=== PATIENT | female | born 1945 | race Caucasian/White ===

== ENCOUNTER 2024-01-02 19:21 | Emergency (ER) | payer MEDICARE ==
[~2024-01-02] VITALS: Ht 170.2 cm; Wt 65.8 kg
[2024-01-02] MEDS: TDAP DIPH,PERTUSS,TET VAC/PF 0.5 ML DISP.SYRIN IM ONE (20:10)
[2024-01-02 20:35] LABS: BASOPHILS # (AUTO) 0.1 K/UL (0.0-0.2); BASOPHILS % (AUTO) 1.3 % (0.0-2.0); EOSINOPHILS % (AUTO) 0.3 % (0.0-7.0); HEMATOCRIT 29.9 % (31.2-41.9); HEMOGLOBIN 9.3 g/dL (10.9-14.3); LYMPHOCYTES # (AUTO) 1.3 K/uL (0.8-4.8); LYMPHOCYTES % (AUTO) 13.3 % (20.5-51.5); MEAN CORPUSCULAR HEMOGLOBIN 23.7 uug (24.7-32.8); MEAN CORPUSCULAR HGB CONC 31 g/dL (32.3-35.6); MEAN CORPUSCULAR VOLUME 76.6 fL (75.5-95.3); MONOCYTES # (AUTO) 0.7 K/uL (0.1-1.30); MONOCYTES % (AUTO) 7.1 % (0.0-11.0); NEUTROPHILS # (AUTO) 7.6 K/uL (1.8-8.9); PLATELET COUNT (AUTO) 443 K/uL (179-408); RED CELL DISTRIBUTION WIDTH 17.9 % (12.3-17.7); WHITE BLOOD COUNT (AUTO) 9.7 K/uL (3.8-11.8)
[2024-01-02 20:37] LABS: DIFFERENTIAL COMMENT 1
[2024-01-02 20:41] LABS: CALCIUM 9.1 mg/dL (8.5-10.1); CARBON DIOXIDE 22 mmol/L (21-32); CHLORIDE 104 mmol/L (98-107); CREATININE 1.6 mg/dL (0.6-1.3); GLUCOSE 95 mg/dL (74-106); POTASSIUM 4.1 mmol/L (3.5-5.1); SODIUM SERUM 138 mmol/L (136-145); UREA NITROGEN, BLOOD 23 mg/dL (7-18)
[2024-01-02] MEDS: IV NS 1000 ML 1,000 ML IV ONE (20:42)
[2024-01-02 20:46] LABS: AMMONIA < 10 umol/L (11-32)
[2024-01-02] MEDS ORDERED: TDAP DIPH,PERTUSS,TET VAC/PF 0.5 ML DISP.SYRIN IM ONE (20:49)
[2024-01-02 20:54] LABS: ALANINE AMINOTRANSFERASE 8 U/L (14-59); ALBUMIN 2.6 g/dL (3.4-5.0); ALKALINE PHOSPHATASE 80 U/L (50-136); ASPARTATE AMINOTRANSFERASE 9 U/L (15-37); BILIRUBIN,TOTAL 0.6 mg/dL (0.2-1.0); NT-PRO BNP 1153 pg/mL (0-125); TOTAL PROTEIN, SERUM 7.1 g/dL (6.4-8.2)
[2024-01-02 22:52] VITALS: BP 125/75; TEMP 98.6; O2SAT 99
== END 2024-01-02 23:03 | disposition home or self-care (01) ==
LOC: ER 19:23
DX: S06.0X0A Concussion without loss of consciousness, initial encounter (principal); Z98.890 Other specified postprocedural states; Z90.710 Acquired absence of both cervix and uterus; W18.39XA Other fall on same level, initial encounter; Y93.89 Activity, other specified; Y92.89 Other specified places as the place of occurrence of the external cause; Y99.8 Other external cause status
CPT/HCPCS: 99285; 96360; 70450; 71045; 80053; 82140; 83880; 85025; 84484; 36415; 90715; 93005; 90471; J7040; A4606; A4663

== ENCOUNTER 2024-04-10 13:06 | Inpatient (IN) | payer MEDICARE, OTHER ==
[~2024-04-10] VITALS: Ht 170.2 cm; Wt 64.4 kg
[2024-04-10 13:44] LABS: BASOPHILS % (AUTO) 0.6 % (0.0-2.0); EOSINOPHILS % (AUTO) 0.6 % (0.0-7.0); HEMATOCRIT 35.6 % (31.2-41.9); HEMOGLOBIN 11.6 g/dL (10.9-14.3); LYMPHOCYTES # (AUTO) 0.6 K/uL (0.8-4.8); LYMPHOCYTES % (AUTO) 7.5 % (20.5-51.5); MEAN CORPUSCULAR HEMOGLOBIN 26.1 uug (24.7-32.8); MEAN CORPUSCULAR HGB CONC 33 g/dL (32.3-35.6); MEAN CORPUSCULAR VOLUME 79.8 fL (75.5-95.3); MONOCYTES # (AUTO) 0.8 K/uL (0.1-1.30); NEUTROPHILS # (AUTO) 6.6 K/uL (1.8-8.9); NEUTROPHILS % (AUTO) 81.3 % (38.5-71.5); PLATELET COUNT (AUTO) 338 K/uL (179-408); RED BLOOD CELL COUNT(AUTO) 4.46 MIL/uL (3.63-4.92); RED CELL DISTRIBUTION WIDTH 17.5 % (12.3-17.7); WHITE BLOOD COUNT (AUTO) 8.1 K/uL (3.8-11.8)
[2024-04-10] MEDS ORDERED: VILA40TA PO (13:50)
[2024-04-10] MEDS ORDERED: PROP40TA7 PO (13:50)
[2024-04-10] MEDS ORDERED: QUET25TA36 PO (13:50)
[2024-04-10] MEDS ORDERED: PANT40TA49 PO (13:50)
[2024-04-10] MEDS ORDERED: BUPR-319 PO (13:50)
[2024-04-10] MEDS ORDERED: RALO60TA14 PO (13:50)
[2024-04-10] MEDS ORDERED: LITH150C PO (13:50)
[2024-04-10] MEDS: IV LACTATED RINGERS SOLUTION 1,000 ML BAG IV ONE (14:04)
[2024-04-10 14:05] LABS: ALANINE AMINOTRANSFERASE 25 U/L (14-59); ALBUMIN 3.3 g/dL (3.4-5.0); ALKALINE PHOSPHATASE 84 U/L (50-136); ASPARTATE AMINOTRANSFERASE 19 U/L (15-37); BILIRUBIN,DIRECT 0.1 mg/dL (0.0-0.2); BILIRUBIN,TOTAL 0.4 mg/dL (0.2-1.0); CALCIUM 8.9 mg/dL (8.5-10.1); CARBON DIOXIDE 28 mmol/L (21-32); CHLORIDE 102 mmol/L (98-107); CREATININE 1.5 mg/dL (0.6-1.3); GLUCOSE 115 mg/dL (74-106); NT-PRO BNP 1175 pg/mL (0-125); POTASSIUM 4.2 mmol/L (3.5-5.1); SODIUM SERUM 141 mmol/L (136-145); TOTAL PROTEIN, SERUM 7.3 g/dL (6.4-8.2); UREA NITROGEN, BLOOD 19 mg/dL (7-18)
[2024-04-10 14:12] LABS: *BILIRUBIN,URIN NEGATIVE (NEGATIVE); *BLOOD, URINE NEGATIVE (NEGATIVE); *CLARITY,URINE CLEAR (CLEAR); *COLOR,URINE YELLOW (YELLOW); *KETONES,URINE 1+ (NEGATIVE); *PROTEIN,URINE 1+ (NEGATIVE); *UROBILINOGEN,URINE 0.2 E.U./dl (NORMAL); LEUKOCYTE ESTERASE ,URINE NEGATIVE (NEGATIVE); NITRITE, URINE NEGATIVE (NEGATIVE); PH,URINE 5.5 (5.0-8.0); UGLUCOSE NEGATIVE (NEGATIVE)
[2024-04-10 14:36] LABS: DIFFERENTIAL COMMENT 1
[2024-04-10 18:11] LABS: BACTERIA,URINE FEW /HPF (NONE SEEN); MUCUS,URINE MODERATE /LPF (0-FEW); RBC,URINE NONE SEEN /HPF (0-3); SQUAMOUS EPITHELIAL CELL,UR FEW /HPF (NONE SEEN); WBC,URINE 0-3 /HPF (0-3)
[2024-04-10] MEDS: IV D5 1/2 NS 1000 ML 1,000 ML IV SCH (19:30)
[2024-04-10] MEDS ORDERED: ONDANSETRON 4 MG/2 ML VIAL IV PRN (19:30)
[2024-04-10] MEDS ORDERED: MAGNESIUM HYDROXIDE 30 ML LIQUID UDC PO PRN (19:30)
[2024-04-10] MEDS ORDERED: REMEDY ESSENTIAL ZINC PASTE 113 GM TP PRN (19:30)
[2024-04-11 06:43] LABS: BASOPHILS # (AUTO) 0.1 K/UL (0.0-0.2); BASOPHILS % (AUTO) 0.8 % (0.0-2.0); EOSINOPHILS % (AUTO) 0.1 % (0.0-7.0); HEMATOCRIT 31.3 % (31.2-41.9); HEMOGLOBIN 10.5 g/dL (10.9-14.3); LYMPHOCYTES # (AUTO) 0.8 K/uL (0.8-4.8); MEAN CORPUSCULAR HEMOGLOBIN 26.5 uug (24.7-32.8); MEAN CORPUSCULAR HGB CONC 34 g/dL (32.3-35.6); MEAN CORPUSCULAR VOLUME 78.5 fL (75.5-95.3); MONOCYTES # (AUTO) 1.2 K/uL (0.1-1.30); MONOCYTES % (AUTO) 14.3 % (0.0-11.0); NEUTROPHILS # (AUTO) 6.5 K/uL (1.8-8.9); NEUTROPHILS % (AUTO) 75.8 % (38.5-71.5); PLATELET COUNT (AUTO) 278 K/uL (179-408); RED BLOOD CELL COUNT(AUTO) 3.99 MIL/uL (3.63-4.92); RED CELL DISTRIBUTION WIDTH 17.5 % (12.3-17.7); WHITE BLOOD COUNT (AUTO) 8.6 K/uL (3.8-11.8)
[2024-04-11 06:44] LABS: DIFFERENTIAL COMMENT 1
[2024-04-11 06:54] LABS: CALCIUM 8.4 mg/dL (8.5-10.1); CARBON DIOXIDE 25 mmol/L (21-32); CHLORIDE 103 mmol/L (98-107); CREATININE 1.4 mg/dL (0.6-1.3); GLUCOSE 75 mg/dL (74-106); PHOSPHOROUS 3.1 mg/dL (2.5-4.9); POTASSIUM 3.6 mmol/L (3.5-5.1); SODIUM SERUM 138 mmol/L (136-145); UREA NITROGEN, BLOOD 21 mg/dL (7-18)
[2024-04-11] MEDS: IV NORMAL SALINE 1000 ML BAG IV ONE (14:45)
[2024-04-11] MEDS ORDERED: IV NORMAL SALINE 250 ML IV ONE (14:59)
[2024-04-11] MEDS ORDERED: SWABABLE VALVE TRANSFER SET EA MC ONE (14:59)
[2024-04-11] MEDS ORDERED: IOHEXOL 300MG/ML 100 ML INFUS..BTL ONE (14:59)
[2024-04-11 18:26] VITALS: BP 147/69; TEMP 97.4; O2SAT 97
[2024-04-11 20:23] VITALS: BP 140/58; TEMP 98.6; O2SAT 97
[2024-04-11] MEDS: ATORVASTATIN 40 MG TABLET PO SCH (21:00)
[2024-04-11 23:25] VITALS: BP 144/67; TEMP 99.4; O2SAT 94
[2024-04-12 04:46] VITALS: BP 130/60; TEMP 98.4; O2SAT 96
[2024-04-12 07:43] VITALS: BP 125/65; TEMP 98.2; O2SAT 98
[2024-04-12 07:47] LABS: BASOPHILS % (AUTO) 0.6 % (0.0-2.0); EOSINOPHILS # (AUTO) 0.1 K/uL (0.0-0.7); EOSINOPHILS % (AUTO) 1.6 % (0.0-7.0); HEMATOCRIT 32.1 % (31.2-41.9); HEMOGLOBIN 10.4 g/dL (10.9-14.3); LYMPHOCYTES # (AUTO) 0.9 K/uL (0.8-4.8); LYMPHOCYTES % (AUTO) 13.4 % (20.5-51.5); MEAN CORPUSCULAR HEMOGLOBIN 25.9 uug (24.7-32.8); MEAN CORPUSCULAR HGB CONC 33 g/dL (32.3-35.6); MEAN CORPUSCULAR VOLUME 79.8 fL (75.5-95.3); MONOCYTES # (AUTO) 0.8 K/uL (0.1-1.30); MONOCYTES % (AUTO) 12.1 % (0.0-11.0); NEUTROPHILS # (AUTO) 4.7 K/uL (1.8-8.9); NEUTROPHILS % (AUTO) 72.3 % (38.5-71.5); PLATELET COUNT (AUTO) 155 K/uL (179-408); RED BLOOD CELL COUNT(AUTO) 4.02 MIL/uL (3.63-4.92); RED CELL DISTRIBUTION WIDTH 17.5 % (12.3-17.7); WHITE BLOOD COUNT (AUTO) 6.4 K/uL (3.8-11.8)
[2024-04-12 07:50] LABS: DIFFERENTIAL COMMENT 1
[2024-04-12 07:55] LABS: CARBON DIOXIDE 22 mmol/L (21-32); CHLORIDE 103 mmol/L (98-107); CHOLESTEROL 182 mg/dL (<200); GLUCOSE 89 mg/dL (74-106); HDL CHOLESTEROL 53 mg/dL (40-60); MAGNESIUM 2.1 mg/dL (1.8-2.4); PHOSPHOROUS 3.2 mg/dL (2.5-4.9); POTASSIUM 3.9 mmol/L (3.5-5.1); SODIUM SERUM 134 mmol/L (136-145); TRIGLYCERIDES 122 MG/DL (30-150); UREA NITROGEN, BLOOD 13 mg/dL (7-18)
[2024-04-12] MEDS: ASPIRIN 81 MG TAB.CHEW PO SCH (08:46)
[2024-04-12 09:45] LABS: ANISOCYTOSIS 1+; LYMPHOCYTES % (MANUAL) 12 % (20-40); MONOCYTES % (MANUAL) 13 % (2-10); NEUTROPHILS % (MANUAL) 75 % (42-75); PLATELET ESTIMATE INCREASED
[2024-04-12] MEDS: IV NS 1000 ML 1,000 ML IV SCH (10:25)
[2024-04-12 11:50] VITALS: BP 126/51; TEMP 98; O2SAT 97
[2024-04-12] MEDS: CLONAZEPAM 0.5 MG TABLET PO PRN (12:35)
[2024-04-12] MEDS: buPROPion XL 150 MG TAB.SR.24H PO SCH (12:36)
[2024-04-12 15:42] VITALS: BP 140/65; TEMP 97.6; O2SAT 99
[2024-04-12] MEDS ORDERED: CEFTRIAXONE 1 G in IV DEXTROSE 5% 50 ML IV SCH (16:00)
[2024-04-12] MEDS: CEFTRIAXONE 1 G in IV DEXTROSE 5% 50 ML IV SCH (16:30)
[2024-04-12 16:57] LABS: *CREATININE,URINE 80.7 mg/dL (30-125); *URINE TOTAL PROTEIN RANDOM 80.4 mg/dL (<150/24HR)
[2024-04-12 19:45] VITALS: BP 124/65; TEMP 98.1; O2SAT 95
[2024-04-12] MEDS: QUETIAPINE FUMARATE 25 MG TABLET PO SCH (20:34)
[2024-04-12] MEDS: ACETAMINOPHEN 325 MG TABLET PO PRN (21:49)
[2024-04-13 00:08] VITALS: BP 123/75; TEMP 97.6; O2SAT 94
[2024-04-13 04:30] VITALS: BP 144/46; TEMP 97.4; O2SAT 93
[2024-04-13 07:50] VITALS: BP 133/61; TEMP 97.7; O2SAT 98
[2024-04-13 07:59] LABS: BASOPHILS % (AUTO) 0.5 % (0.0-2.0); EOSINOPHILS # (AUTO) 0.1 K/uL (0.0-0.7); EOSINOPHILS % (AUTO) 3.7 % (0.0-7.0); HEMOGLOBIN 9.9 g/dL (10.9-14.3); LYMPHOCYTES # (AUTO) 0.9 K/uL (0.8-4.8); LYMPHOCYTES % (AUTO) 30.1 % (20.5-51.5); MEAN CORPUSCULAR HEMOGLOBIN 26.6 uug (24.7-32.8); MEAN CORPUSCULAR HGB CONC 34 g/dL (32.3-35.6); MEAN CORPUSCULAR VOLUME 78.4 fL (75.5-95.3); MONOCYTES # (AUTO) 0.4 K/uL (0.1-1.30); MONOCYTES % (AUTO) 12.3 % (0.0-11.0); NEUTROPHILS # (AUTO) 1.7 K/uL (1.8-8.9); NEUTROPHILS % (AUTO) 53.4 % (38.5-71.5); PLATELET COUNT (AUTO) 269 K/uL (179-408); RED BLOOD CELL COUNT(AUTO) 3.71 MIL/uL (3.63-4.92); RED CELL DISTRIBUTION WIDTH 17.3 % (12.3-17.7); WHITE BLOOD COUNT (AUTO) 3.1 K/uL (3.8-11.8)
[2024-04-13 08:03] LABS: CALCIUM 8.2 mg/dL (8.5-10.1); CARBON DIOXIDE 27 mmol/L (21-32); CHLORIDE 109 mmol/L (98-107); CREATININE 1.2 mg/dL (0.6-1.3); GLUCOSE 87 mg/dL (74-106); MAGNESIUM 2.1 mg/dL (1.8-2.4); PHOSPHOROUS 3.1 mg/dL (2.5-4.9); SODIUM SERUM 146 mmol/L (136-145); UREA NITROGEN, BLOOD 11 mg/dL (7-18)
[2024-04-13 08:07] LABS: DIFFERENTIAL COMMENT 1
[2024-04-13] MEDS: LITHIUM CARBONATE 150 MG CAPSULE PO SCH (08:42)
[2024-04-13] MEDS: POTASSIUM CHLORIDE 10 MEQ TAB.PRT.SR PO SCH (09:26)
[2024-04-13 11:46] VITALS: BP 128/59; TEMP 97.8; O2SAT 97
[2024-04-13 15:48] VITALS: BP 102/57; TEMP 97.6; O2SAT 98
[2024-04-13 19:40] VITALS: BP 136/69; TEMP 97.6; O2SAT 95
[2024-04-14 00:21] VITALS: BP 137/79; TEMP 97.6; O2SAT 100
[2024-04-14 04:07] VITALS: BP 146/70; TEMP 98.2; O2SAT 98
[2024-04-14 07:05] LABS: CALCIUM 8.1 mg/dL (8.5-10.1); CARBON DIOXIDE 24 mmol/L (21-32); CHLORIDE 110 mmol/L (98-107); CREATININE 1.1 mg/dL (0.6-1.3); GLUCOSE 85 mg/dL (74-106); POTASSIUM 3.4 mmol/L (3.5-5.1); SODIUM SERUM 145 mmol/L (136-145); UREA NITROGEN, BLOOD 6 mg/dL (7-18)
[2024-04-14] MEDS: IV 1/2NS 1000 ML 1,000 ML IV PRN (07:23)
[2024-04-14 07:25] VITALS: BP 147/81; TEMP 97.6; O2SAT 95
[2024-04-14] MEDS: POTASSIUM CHLORIDE 20 MEQ TAB.PRT.SR PO ONE (09:07)
[2024-04-14 12:00] VITALS: BP 141/69; TEMP 98.2; O2SAT 98
[2024-04-14 15:58] VITALS: BP 137/72; TEMP 97.6; O2SAT 95
[2024-04-14 19:00] VITALS: BP 124/71; TEMP 97.9; O2SAT 96
[2024-04-15 06:00] VITALS: BP 136/69; TEMP 97.9; O2SAT 95
[2024-04-15 07:48] LABS: BASOPHILS % (AUTO) 0.7 % (0.0-2.0); EOSINOPHILS # (AUTO) 0.2 K/uL (0.0-0.7); EOSINOPHILS % (AUTO) 4.5 % (0.0-7.0); HEMATOCRIT 30.4 % (31.2-41.9); HEMOGLOBIN 10.3 g/dL (10.9-14.3); LYMPHOCYTES # (AUTO) 1.1 K/uL (0.8-4.8); LYMPHOCYTES % (AUTO) 28.1 % (20.5-51.5); MEAN CORPUSCULAR HEMOGLOBIN 26.6 uug (24.7-32.8); MEAN CORPUSCULAR HGB CONC 34 g/dL (32.3-35.6); MEAN CORPUSCULAR VOLUME 78.6 fL (75.5-95.3); MONOCYTES # (AUTO) 0.5 K/uL (0.1-1.30); MONOCYTES % (AUTO) 13.9 % (0.0-11.0); NEUTROPHILS # (AUTO) 2.1 K/uL (1.8-8.9); NEUTROPHILS % (AUTO) 52.8 % (38.5-71.5); PLATELET COUNT (AUTO) 298 K/uL (179-408); RED BLOOD CELL COUNT(AUTO) 3.87 MIL/uL (3.63-4.92); RED CELL DISTRIBUTION WIDTH 17.4 % (12.3-17.7)
[2024-04-15 07:58] LABS: DIFFERENTIAL COMMENT 1
[2024-04-15 08:11] LABS: CALCIUM 8.7 mg/dL (8.5-10.1); CHLORIDE 109 mmol/L (98-107); CREATININE 1.3 mg/dL (0.6-1.3); GLUCOSE 86 mg/dL (74-106); MAGNESIUM 2.2 mg/dL (1.8-2.4); PHOSPHOROUS 2.8 mg/dL (2.5-4.9); POTASSIUM 3.7 mmol/L (3.5-5.1); SODIUM SERUM 144 mmol/L (136-145); UREA NITROGEN, BLOOD 6 mg/dL (7-18)
[2024-04-15 08:27] LABS: CARBON DIOXIDE 25 mmol/L (21-32)
[2024-04-15 11:34] VITALS: BP 136/69; TEMP 97.9; O2SAT 98
[2024-04-15 15:43] VITALS: BP 139/67; TEMP 98.3; O2SAT 95
== END 2024-04-15 16:40 | DRG 682 ==
LOC: ER 13:06 → MEDSURG3 04-11 17:11 → TELE3 04-11 18:16 → MEDSURG3 04-14 14:10
PROC: 05HA33Z Insertion of Infusion Device into Left Brachial Vein, Percutaneous Approach (ICD-10-PCS; principal; 2024-04-10)
DX: N17.9 Acute kidney failure, unspecified (principal); G93.41 Metabolic encephalopathy; E44.1 Mild protein-calorie malnutrition; E87.1 Hypo-osmolality and hyponatremia; R44.0 Auditory hallucinations; F31.9 Bipolar disorder, unspecified; E88.09 Other disorders of plasma-protein metabolism, not elsewhere classified; E87.6 Hypokalemia; I10 Essential (primary) hypertension; K21.9 Gastro-esophageal reflux disease without esophagitis; M89.8X9 Other specified disorders of bone, unspecified site; Z87.440 Personal history of urinary (tract) infections; Z90.710 Acquired absence of both cervix and uterus; Z88.0 Allergy status to penicillin; Z96.653 Presence of artificial knee joint, bilateral; Z86.16 Personal history of COVID-19; Z79.899 Other long term (current) drug therapy; Z78.1 Physical restraint status; R44.1 Visual hallucinations
CPT/HCPCS: 36415; 70030-TC; 70450; 70496; 71045; 76770; 83605; 83735; 84100; 84300; 84484; 85025; 85730; 87040; 93307; A4663; G0378; J0696; J7040; J7120; Q9967

== ENCOUNTER 2024-04-15 17:46 | Inpatient (IN) | payer MEDICARE, OTHER ==
[~2024-04-15] VITALS: Ht 170.2 cm; Wt 61.7 kg
[~2024-04-15 17:46] MED LIST: BUPR-319 PO; LITH150C PO; PANT40TA49 PO; PROP40TA7 PO; QUET25TA36 PO; RALO60TA14 PO; VILA40TA PO
[2024-04-15] MEDS ORDERED: MAGNESIUM HYDROXIDE 30 ML LIQUID UDC PO PRN (18:30)
[2024-04-15] MEDS ORDERED: MAG HYDROX/AL HYDROX/SIMETH 30 ML LIQUID UDC PO PRN (18:30)
[2024-04-15] MEDS: BLOOD SUGAR DIAGNOSTIC 1 EACH STRIP VI ONE ×2 (19:30→19:45)
[2024-04-15 20:23] VITALS: BP 135/77; TEMP 98.2; O2SAT 98
[2024-04-15] MEDS: QUETIAPINE FUMARATE 25 MG TABLET PO SCH (21:17)
[2024-04-16 07:40] VITALS: BP 135/68; TEMP 97.8; O2SAT 98
[2024-04-16] MEDS: buPROPion XL 150 MG TAB.SR.24H PO SCH (09:17)
[2024-04-16] MEDS: LITHIUM CARBONATE 150 MG CAPSULE PO SCH (09:17)
[2024-04-16 10:24] LABS: CREATININE 1.2 mg/dL (0.6-1.3)
[2024-04-16 16:00] VITALS: BP 112/73; TEMP 97.6; O2SAT 97
[2024-04-16 19:57] VITALS: BP 124/66; TEMP 97.8; O2SAT 18
[2024-04-17 08:06] VITALS: BP 116/62; TEMP 98.4; O2SAT 18
[2024-04-17] MEDS: ENSURE ENLIVE (VAN) 240 ML LIQUID PO SCH (09:18)
[2024-04-17 16:06] VITALS: BP 138/79; TEMP 98.1; O2SAT 98
[2024-04-17 20:00] VITALS: BP_SYST 120; BP_SYST 154; BP_DIAS 76; TEMP 97.8; TEMP 98.1; O2SAT 97; O2SAT 99
[2024-04-18 08:58] VITALS: BP 112/71; TEMP 97.6; O2SAT 97
[2024-04-18] MEDS: GUAIFENESIN/DEXTROMETHORPHAN 5 ML UDC PO PRN (13:25)
[2024-04-18 16:08] VITALS: BP 119/59; TEMP 98.3; O2SAT 100
[2024-04-18 20:07] VITALS: BP 133/73; TEMP 97.9; O2SAT 98
[2024-04-18] MEDS: QUETIAPINE FUMARATE 25 MG TABLET PO SCH (21:08)
[2024-04-18] MEDS: CLONAZEPAM 0.5 MG TABLET PO PRN (21:08)
[2024-04-19 08:10] VITALS: BP 139/68; TEMP 98.1; O2SAT 98
[2024-04-19 08:23] LABS: ALANINE AMINOTRANSFERASE 24 U/L (14-59); ALBUMIN 2.6 g/dL (3.4-5.0); ALKALINE PHOSPHATASE 75 U/L (50-136); ASPARTATE AMINOTRANSFERASE 12 U/L (15-37); BILIRUBIN,TOTAL 0.3 mg/dL (0.2-1.0); CALCIUM 8.4 mg/dL (8.5-10.1); CARBON DIOXIDE 27 mmol/L (21-32); CHLORIDE 106 mmol/L (98-107); CREATININE 1.2 mg/dL (0.6-1.3); GLUCOSE 92 mg/dL (74-106); POTASSIUM 3.8 mmol/L (3.5-5.1); SODIUM SERUM 142 mmol/L (136-145); TOTAL PROTEIN, SERUM 6.5 g/dL (6.4-8.2); UREA NITROGEN, BLOOD 20 mg/dL (7-18)
[2024-04-19 08:31] LABS: THYROID STIMULATING HORMONE 4.566 mIU/mL (0.358-3.740)
[2024-04-19] MEDS: PROPRANOLOL HCL 40 MG TABLET PO SCH (08:49)
[2024-04-19] MEDS: RALOXIFENE HCL 60 MG TABLET PO SCH (08:50)
[2024-04-19 16:06] VITALS: BP 122/61; TEMP 97.6; O2SAT 98
[2024-04-19 19:47] VITALS: BP 118/61; TEMP 97.9; O2SAT 96
[2024-04-20 08:10] VITALS: BP 108/56; TEMP 98.6; O2SAT 98
[2024-04-20 16:12] VITALS: BP 119/54; TEMP 97.6; O2SAT 100
[2024-04-20 20:00] VITALS: BP 119/59; TEMP 97.8; O2SAT 98
[2024-04-21 08:14] VITALS: BP 116/49; TEMP 98.1; O2SAT 96
[2024-04-21 21:39] VITALS: BP 151/52; TEMP 98.1; O2SAT 98
[2024-04-22] MEDS: TEMAZEPAM 7.5 MG CAPSULE PO PRN (01:57)
[2024-04-22 08:30] VITALS: BP 119/64; TEMP 98; O2SAT 97
[2024-04-22] MEDS: ACETAMINOPHEN 325 MG TABLET PO PRN (15:26)
[2024-04-22 17:34] LABS: BASOPHILS % (AUTO) 0.2 % (0.0-2.0); HEMATOCRIT 31.5 % (31.2-41.9); HEMOGLOBIN 10.2 g/dL (10.9-14.3); LYMPHOCYTES % (AUTO) 4.6 % (20.5-51.5); MEAN CORPUSCULAR HEMOGLOBIN 25.2 uug (24.7-32.8); MEAN CORPUSCULAR HGB CONC 32 g/dL (32.3-35.6); MONOCYTES # (AUTO) 2.2 K/uL (0.1-1.30); MONOCYTES % (AUTO) 10.1 % (0.0-11.0); NEUTROPHILS # (AUTO) 18.7 K/uL (1.8-8.9); NEUTROPHILS % (AUTO) 85.1 % (38.5-71.5); PLATELET COUNT (AUTO) 519 K/uL (179-408); RED BLOOD CELL COUNT(AUTO) 4.04 MIL/uL (3.63-4.92); RED CELL DISTRIBUTION WIDTH 16.9 % (12.3-17.7); WHITE BLOOD COUNT (AUTO) 21.9 K/uL (3.8-11.8)
[2024-04-22 17:38] LABS: DIFFERENTIAL COMMENT 1
[2024-04-22 17:41] LABS: CALCIUM 8.5 mg/dL (8.5-10.1); CARBON DIOXIDE 25 mmol/L (21-32); CHLORIDE 101 mmol/L (98-107); CREATININE 1.3 mg/dL (0.6-1.3); GLUCOSE 112 mg/dL (74-106); POTASSIUM 4.6 mmol/L (3.5-5.1); SODIUM SERUM 134 mmol/L (136-145); UREA NITROGEN, BLOOD 34 mg/dL (7-18)
[2024-04-22 18:29] VITALS: BP 147/60; TEMP 99.8; O2SAT 96
[2024-04-22 20:16] VITALS: BP 126/64; TEMP 99.1; O2SAT 95
[2024-04-22 21:00] VITALS: TEMP 100.1; O2SAT 96
[2024-04-22] MEDS: IBUPROFEN 600 MG TABLET PO PRN (22:09)
[2024-04-22 23:15] VITALS: TEMP 99.1; O2SAT 96
[2024-04-23 00:30] VITALS: TEMP 98.4
[2024-04-23 07:48] VITALS: BP 103/68; TEMP 98.8; O2SAT 92
[2024-04-23 15:07] VITALS: BP 106/43; TEMP 100.4; O2SAT 95
[2024-04-23 16:25] VITALS: TEMP 99.3
[2024-04-23 20:00] VITALS: BP 109/48; TEMP 97.1; O2SAT 97
[2024-04-24 08:10] VITALS: BP 86/33; TEMP 98.2; O2SAT 98
[2024-04-24 09:39] LABS: BASOPHILS % (AUTO) 0.2 % (0.0-2.0); HEMATOCRIT 32.4 % (31.2-41.9); HEMOGLOBIN 10.1 g/dL (10.9-14.3); LYMPHOCYTES # (AUTO) 1.3 K/uL (0.8-4.8); LYMPHOCYTES % (AUTO) 5.4 % (20.5-51.5); MEAN CORPUSCULAR HEMOGLOBIN 24.4 uug (24.7-32.8); MEAN CORPUSCULAR HGB CONC 31 g/dL (32.3-35.6); MEAN CORPUSCULAR VOLUME 78.6 fL (75.5-95.3); MONOCYTES # (AUTO) 2.1 K/uL (0.1-1.30); MONOCYTES % (AUTO) 8.6 % (0.0-11.0); NEUTROPHILS # (AUTO) 21.1 K/uL (1.8-8.9); NEUTROPHILS % (AUTO) 85.8 % (38.5-71.5); PLATELET COUNT (AUTO) 426 K/uL (179-408); RED BLOOD CELL COUNT(AUTO) 4.12 MIL/uL (3.63-4.92); WHITE BLOOD COUNT (AUTO) 24.5 K/uL (3.8-11.8)
[2024-04-24 10:13] LABS: DIFFERENTIAL COMMENT 1
[2024-04-24 10:53] LABS: CALCIUM 8.8 mg/dL (8.5-10.1); CARBON DIOXIDE 23 mmol/L (21-32); CHLORIDE 101 mmol/L (98-107); CREATININE 2.5 mg/dL (0.6-1.3); GLUCOSE 101 mg/dL (74-106); POTASSIUM 4.6 mmol/L (3.5-5.1); SODIUM SERUM 136 mmol/L (136-145); UREA NITROGEN, BLOOD 56 mg/dL (7-18)
[2024-04-24] MEDS ORDERED: IV NORMAL SALINE 100 ML BAG IV ONE (15:45)
[2024-04-24 16:10] VITALS: BP 137/56; TEMP 98; O2SAT 100
[2024-04-24] MEDS: IV NS 1000 ML 1,000 ML IV SCH (19:11)
[2024-04-24 20:00] VITALS: BP 98/52; TEMP 97.3; O2SAT 98
[2024-04-25 08:06] VITALS: BP 122/37; TEMP 98.6; O2SAT 96
[2024-04-25 09:56] LABS: CALCIUM 8.5 mg/dL (8.5-10.1); CARBON DIOXIDE 24 mmol/L (21-32); CHLORIDE 106 mmol/L (98-107); CREATININE 1.9 mg/dL (0.6-1.3); GLUCOSE 105 mg/dL (74-106); POTASSIUM 3.9 mmol/L (3.5-5.1); SODIUM SERUM 138 mmol/L (136-145); UREA NITROGEN, BLOOD 48 mg/dL (7-18)
[2024-04-25 16:08] VITALS: TEMP 98.4; O2SAT 100
[2024-04-25 22:09] VITALS: BP 118/52; TEMP 98.5; O2SAT 98
[2024-04-26 07:02] VITALS: BP 140/60; TEMP 97.6; O2SAT 93
[2024-04-26 08:27] VITALS: BP 149/77; TEMP 98; O2SAT 99
[2024-04-26 08:42] LABS: *BILIRUBIN,URIN NEGATIVE (NEGATIVE); *BLOOD, URINE 1+ (NEGATIVE); *CLARITY,URINE CLEAR (CLEAR); *COLOR,URINE YELLOW (YELLOW); *KETONES,URINE NEGATIVE (NEGATIVE); *PROTEIN,URINE 1+ (NEGATIVE); *UROBILINOGEN,URINE 0.2 E.U./dl (NORMAL); LEUKOCYTE ESTERASE ,URINE 2+ (NEGATIVE); NITRITE, URINE NEGATIVE (NEGATIVE); UGLUCOSE NEGATIVE (NEGATIVE)
[2024-04-26 08:45] LABS: *CREATININE,URINE 29.7 mg/dL (30-125); *URINE TOTAL PROTEIN RANDOM 59.6 mg/dL (<150/24HR)
[2024-04-26 08:46] LABS: BACTERIA,URINE FEW /HPF (NONE SEEN); SQUAMOUS EPITHELIAL CELL,UR FEW /HPF (NONE SEEN); WBC,URINE 20-50 /HPF (0-3)
[2024-04-26 09:19] LABS: BASOPHILS # (AUTO) 0.1 K/UL (0.0-0.2); BASOPHILS % (AUTO) 0.5 % (0.0-2.0); EOSINOPHILS # (AUTO) 0.1 K/uL (0.0-0.7); EOSINOPHILS % (AUTO) 1.1 % (0.0-7.0); HEMATOCRIT 27.1 % (31.2-41.9); HEMOGLOBIN 8.8 g/dL (10.9-14.3); LYMPHOCYTES % (AUTO) 7.9 % (20.5-51.5); MEAN CORPUSCULAR HEMOGLOBIN 25.6 uug (24.7-32.8); MEAN CORPUSCULAR HGB CONC 32 g/dL (32.3-35.6); MEAN CORPUSCULAR VOLUME 79.1 fL (75.5-95.3); MONOCYTES # (AUTO) 1.4 K/uL (0.1-1.30); MONOCYTES % (AUTO) 11.6 % (0.0-11.0); NEUTROPHILS # (AUTO) 9.6 K/uL (1.8-8.9); NEUTROPHILS % (AUTO) 78.9 % (38.5-71.5); PLATELET COUNT (AUTO) 424 K/uL (179-408); RED BLOOD CELL COUNT(AUTO) 3.43 MIL/uL (3.63-4.92); RED CELL DISTRIBUTION WIDTH 17.5 % (12.3-17.7); WHITE BLOOD COUNT (AUTO) 12.2 K/uL (3.8-11.8)
[2024-04-26 09:21] LABS: DIFFERENTIAL COMMENT 1
[2024-04-26 09:37] LABS: CALCIUM 8.7 mg/dL (8.5-10.1); CARBON DIOXIDE 24 mmol/L (21-32); CHLORIDE 112 mmol/L (98-107); CREATININE 1.5 mg/dL (0.6-1.3); GLUCOSE 89 mg/dL (74-106); POTASSIUM 4.5 mmol/L (3.5-5.1); SODIUM SERUM 145 mmol/L (136-145); UREA NITROGEN, BLOOD 31 mg/dL (7-18)
[2024-04-26] MEDS: levoFLOXacin 250 MG TABLET PO SCH (12:01)
[2024-04-26 12:25] LABS: URINE AMORPHOUS URATE MANY /HPF; YEAST,URINE MODERATE /HPF (NONE SEEN)
[2024-04-26 14:58] VITALS: BP 140/68; TEMP 98; O2SAT 100
[2024-04-26 15:05] VITALS: BP 138/69; TEMP 98; O2SAT 100
[2024-04-26 20:00] VITALS: BP 98/66; TEMP 97.7; O2SAT 100
[2024-04-26] MEDS ORDERED: FLUCONAZOLE 100 MG TABLET ONE (22:16)
[2024-04-26] MEDS: FLUCONAZOLE 100 MG TABLET PO SCH (22:26)
[2024-04-27 08:10] VITALS: BP 134/58; TEMP 97.7; O2SAT 94
[2024-04-27 08:58] LABS: CALCIUM 8.7 mg/dL (8.5-10.1); CARBON DIOXIDE 24 mmol/L (21-32); CHLORIDE 110 mmol/L (98-107); CREATININE 1.3 mg/dL (0.6-1.3); GLUCOSE 100 mg/dL (74-106); POTASSIUM 4.3 mmol/L (3.5-5.1); SODIUM SERUM 145 mmol/L (136-145); UREA NITROGEN, BLOOD 25 mg/dL (7-18)
[2024-04-27] MEDS: LITHIUM CARBONATE 150 MG CAPSULE PO SCH (09:17)
[2024-04-27 16:10] VITALS: BP 128/51; TEMP 97.5; O2SAT 100
[2024-04-27 20:00] VITALS: BP 127/69; TEMP 98; O2SAT 99
[2024-04-27] MEDS: QUETIAPINE FUMARATE 25 MG TABLET PO SCH (20:11)
[2024-04-28 08:07] LABS: BASOPHILS # (AUTO) 0.1 K/UL (0.0-0.2); BASOPHILS % (AUTO) 0.6 % (0.0-2.0); EOSINOPHILS # (AUTO) 0.3 K/uL (0.0-0.7); EOSINOPHILS % (AUTO) 2.8 % (0.0-7.0); HEMATOCRIT 30.1 % (31.2-41.9); HEMOGLOBIN 9.6 g/dL (10.9-14.3); LYMPHOCYTES # (AUTO) 0.9 K/uL (0.8-4.8); LYMPHOCYTES % (AUTO) 7.8 % (20.5-51.5); MEAN CORPUSCULAR HEMOGLOBIN 25.3 uug (24.7-32.8); MEAN CORPUSCULAR HGB CONC 32 g/dL (32.3-35.6); MEAN CORPUSCULAR VOLUME 79.7 fL (75.5-95.3); MONOCYTES # (AUTO) 1.2 K/uL (0.1-1.30); MONOCYTES % (AUTO) 10.3 % (0.0-11.0); NEUTROPHILS % (AUTO) 78.5 % (38.5-71.5); PLATELET COUNT (AUTO) 506 K/uL (179-408); RED BLOOD CELL COUNT(AUTO) 3.77 MIL/uL (3.63-4.92); RED CELL DISTRIBUTION WIDTH 17.1 % (12.3-17.7); WHITE BLOOD COUNT (AUTO) 11.5 K/uL (3.8-11.8)
[2024-04-28 08:12] VITALS: BP 126/71; TEMP 98.5; O2SAT 96
[2024-04-28 08:13] LABS: DIFFERENTIAL COMMENT 1
[2024-04-28 16:35] VITALS: BP 130/71; TEMP 97.9; O2SAT 100
[2024-04-28 19:55] VITALS: BP 133/64; TEMP 97.9; O2SAT 98
[2024-04-29 07:54] VITALS: BP 95/45; TEMP 97.8; O2SAT 100
[2024-04-29 15:31] VITALS: BP 123/61; TEMP 97.5; O2SAT 98
== END 2024-04-29 19:33 | DRG 885 ==
LOC: GPS 17:46
PROVIDERS: ADMIT Nurse Practitioner Psychiatric/Mental Health; ATTEND Nurse Practitioner Family
DX: F31.64 Bipolar disorder, current episode mixed, severe, with psychotic features (principal); N17.0 Acute kidney failure with tubular necrosis; G92.8 Other toxic encephalopathy; E44.1 Mild protein-calorie malnutrition; E87.1 Hypo-osmolality and hyponatremia; B37.49 Other urogenital candidiasis; E88.09 Other disorders of plasma-protein metabolism, not elsewhere classified; D50.9 Iron deficiency anemia, unspecified; E78.5 Hyperlipidemia, unspecified; K21.9 Gastro-esophageal reflux disease without esophagitis; M19.90 Unspecified osteoarthritis, unspecified site; I10 Essential (primary) hypertension; J40 Bronchitis, not specified as acute or chronic; Z79.899 Other long term (current) drug therapy; Z87.440 Personal history of urinary (tract) infections; Z90.710 Acquired absence of both cervix and uterus; Z88.0 Allergy status to penicillin
CPT/HCPCS: 36415; 70030-TC; 71045; 74018; 76775; 84300; 84443; 85025; 86140; 87040; 93005; J7040